=== PATIENT | male | born 1975 | race Native Hawaiian/Other Pacific Islander ===

== ENCOUNTER 2016-05-28 09:02 | Emergency (ER) | payer OTHER ==
[~2016-05-28] VITALS: Ht 180.3 cm; Wt 61.2 kg
[2016-05-28 09:15] VITALS: TEMP 99
[2016-05-28 10:48] LABS: POTASSIUM 3.4 mmol/L (3.6-5.2); SODIUM 138 mmol/L (136-145)
[2016-05-28 10:53] LABS: PLATELET COUNT 318 K/uL (142-355)
[2016-05-28 11:58] VITALS: BP 112/52
== END 2016-05-28 12:08 | disposition home or self-care (01) ==
LOC: ED 09:02
PROVIDERS: Specialist
DX: F10.239 Alcohol dependence with withdrawal, unspecified (principal); E51.2 Wernicke's encephalopathy; F41.8 Other specified anxiety disorders
CPT/HCPCS: 80053; 81000; 83605; 83735; 84100; 85027; 96365; 96375; 99284; J2060; J3411; J3475; J3490

== ENCOUNTER 2016-08-19 16:50 | Emergency (ER) | payer OTHER ==
[~2016-08-19] VITALS: Ht 177.8 cm; Wt 59.0 kg
[2016-08-19 17:00] VITALS: TEMP 98.6
[2016-08-19 18:05] VITALS: BP 152/89
== END 2016-08-19 18:05 | disposition home or self-care (01) ==
LOC: ED 16:50
DX: S29.011A Strain of muscle and tendon of front wall of thorax, initial encounter (principal); X58.XXXA Exposure to other specified factors, initial encounter; Y93.89 Activity, other specified; Y92.89 Other specified places as the place of occurrence of the external cause
CPT/HCPCS: 96372; 99283; J2270; J2360; J2405

== ENCOUNTER 2016-09-05 14:19 | Emergency (ER) | payer OTHER | END 2016-09-05 14:40 | disposition home or self-care (01) | LOC: ED 14:19 | DX: R07.81 Pleurodynia (principal) | CPT/HCPCS: 99281 ==

== ENCOUNTER 2016-09-12 16:54 | Emergency (ER) | payer OTHER ==
[~2016-09-12] VITALS: Ht 177.8 cm; Wt 59.0 kg
[2016-09-12 19:45] VITALS: BP 122/78; TEMP 98.2
== END 2016-09-12 19:30 | disposition home or self-care (01) ==
LOC: ED 16:54
DX: R07.89 Other chest pain (principal); S29.011A Strain of muscle and tendon of front wall of thorax, initial encounter
CPT/HCPCS: 80307; 81000; 96372; 99283; G0479; J1885; J2360

== ENCOUNTER 2016-10-25 00:25 | Emergency (ER) | payer OTHER ==
[~2016-10-25] VITALS: Ht 177.8 cm; Wt 61.2 kg
[2016-10-25 01:09] LABS: PLATELET COUNT 278 K/uL (142-355)
[2016-10-25 01:20] LABS: POTASSIUM 3.4 mmol/L (3.6-5.2); SODIUM 140 mmol/L (136-145)
[2016-10-25 05:39] VITALS: BP 1110/68; TEMP 98.3
== END 2016-10-25 05:42 | disposition home or self-care (01) ==
LOC: ED 00:25
DX: T14.91 Suicide attempt (principal); X83.8XXA Intentional self-harm by other specified means, initial encounter
CPT/HCPCS: 36415; 80053; 80307; 80320; 80329; 81000; 85027; 99285; G0479

== ENCOUNTER 2018-03-11 18:09 | Inpatient (IN) | payer OTHER ==
[~2018-03-11] VITALS: Ht 177.8 cm; Wt 65.1 kg
[2018-03-11 18:40] VITALS: BP 120/70; TEMP 99.3
[2018-03-11 23:37] VITALS: BP 128/72; TEMP 98.2; Ht 177.8 cm; Wt 65.1 kg
[2018-03-12 04:00] VITALS: BP 100/64; TEMP 98.9
[2018-03-12 08:00] VITALS: BP 107/65; TEMP 98.2
[2018-03-12 09:20] LABS: PLATELET COUNT 265 K/uL (142-355)
[2018-03-12 09:53] LABS: POTASSIUM 3.8 mmol/L (3.6-5.2)
[2018-03-12 12:23] VITALS: BP 107/66; TEMP 98.1
[2018-03-12 16:17] VITALS: BP 106/67; TEMP 98.5
[2018-03-12 20:00] VITALS: BP 116/63; TEMP 98.5
[2018-03-13] VITALS: BP 112/69; TEMP 98.1
[2018-03-13 04:00] VITALS: BP 112/71; TEMP 98.6
[2018-03-13 06:46] LABS: PLATELET COUNT 265 K/uL (142-355)
[2018-03-13 08:04] VITALS: BP 111/68; TEMP 98.6
[2018-03-13 12:12] VITALS: BP 111/59; TEMP 98.6
[2018-03-13 16:27] VITALS: BP 114/73; TEMP 98.7
[2018-03-13 20:10] VITALS: BP 109/98; TEMP 98.8
[2018-03-14] VITALS: BP 114/74; TEMP 99.5
[2018-03-14 04:00] VITALS: BP 109/64; TEMP 99.1
[2018-03-14 08:18] VITALS: BP 116/77; TEMP 98.5
[2018-03-14 12:05] VITALS: BP 125/83; TEMP 99
[2018-03-14 16:08] VITALS: BP 105/71; TEMP 98.8
[2018-03-14 16:10] LABS: PLATELET COUNT 310 K/uL (142-355)
[2018-03-14 20:00] VITALS: BP 111/64; TEMP 98.5
[2018-03-15 00:10] VITALS: BP 114/76; TEMP 98.4
[2018-03-15 04:05] VITALS: BP 122/72; TEMP 98.1
[2018-03-15 05:34] LABS: PLATELET COUNT 288 K/uL (142-355)
[2018-03-15 05:49] LABS: POTASSIUM 3.8 mmol/L (3.6-5.2)
[2018-03-15 08:05] VITALS: BP 110/72; TEMP 97.9
[2018-03-15 12:03] VITALS: BP 113/73; TEMP 98
[2018-03-15 16:09] VITALS: BP 112/74; TEMP 98.4
[2018-03-15 20:23] VITALS: BP 115/70; TEMP 98.5
[2018-03-16] VITALS: BP 124/73; TEMP 98.7
[2018-03-16 04:00] VITALS: BP 112/70; TEMP 98
[2018-03-16 06:16] LABS: PLATELET COUNT 293 K/uL (142-355)
[2018-03-16 06:52] LABS: POTASSIUM 3.7 mmol/L (3.6-5.2)
[2018-03-16 08:00] VITALS: BP 104/68; TEMP 98
[2018-03-16 12:00] VITALS: BP 123/80; TEMP 98.1
[2018-03-16 16:00] VITALS: BP 112/76; TEMP 98.7
[2018-03-16 20:00] VITALS: BP 108/67; TEMP 98.7
[2018-03-17] VITALS: BP 115/64; TEMP 99
[2018-03-17 04:00] VITALS: BP 112/67; TEMP 98.8
[2018-03-17 06:18] LABS: PLATELET COUNT 316 K/uL (142-355)
[2018-03-17 06:41] LABS: POTASSIUM 3.5 mmol/L (3.6-5.2)
[2018-03-17 08:00] VITALS: BP 111/74; TEMP 98.7
[2018-03-17 12:00] VITALS: BP 120/78; TEMP 97.8
[2018-03-17] MEDS ORDERED: LEVO250T2 PO (14:20)
== END 2018-03-17 16:20 | disposition home or self-care (01) | DRG 603 ==
LOC: ED 18:09 → MED/SURG 19:55
PROVIDERS: ADMIT Emergency Medicine
PROC: 05HM33Z Insertion of Infusion Device into Right Internal Jugular Vein, Percutaneous Approach (ICD-10-PCS; principal; 2018-03-14)
PROC: B543ZZA Ultrasonography of Right Jugular Veins, Guidance (ICD-10-PCS; 2018-03-14)
PROC: 0H9NXZZ Drainage of Left Foot Skin, External Approach (ICD-10-PCS; 2018-03-14)
DX: L02.612 Cutaneous abscess of left foot (principal); L03.116 Cellulitis of left lower limb; F17.200 Nicotine dependence, unspecified, uncomplicated; K59.09 Other constipation; I87.8 Other specified disorders of veins; B95.62 Methicillin resistant Staphylococcus aureus infection as the cause of diseases classified elsewhere
CPT/HCPCS: 80053; 80202; 83605; 85027; 85651; 86140; 87040; 87070; 87077; 87185; 87186; 87205; 90715; 96372; 99283; C1768; J0696; J1650; J1885; J2270; J3370; J3490

== ENCOUNTER 2020-04-11 03:15 | Inpatient (IN) | payer OTHER ==
[2020-04-11] VITALS (14 sets, daily range): BP systolic 139–156; BP diastolic 88–104; TEMP 97.9–98.7; Ht 177.8 cm; Wt 70.3 kg
[~2020-04-11] VITALS: Ht 177.8 cm; Wt 70.3 kg
[~2020-04-11 03:15] MED LIST: LEVO250T2 PO
[2020-04-11 03:55] LABS: PLATELET COUNT 285 K/uL (142-355)
[2020-04-11 04:04] LABS: POTASSIUM 3.3 mmol/L (3.6-5.2)
[2020-04-12 04:00] VITALS: BP 122/86; TEMP 100.1
[2020-04-12 06:14] LABS: PLATELET COUNT 190 K/uL (142-355)
[2020-04-12 06:25] LABS: POTASSIUM 3.5 mmol/L (3.6-5.2)
[2020-04-12 08:00] VITALS: BP 107/74; TEMP 100.2
[2020-04-12 12:15] VITALS: BP 120/84; TEMP 99.3
[2020-04-12 16:00] VITALS: BP 118/81; TEMP 100.1
[2020-04-12 20:00] VITALS: BP 115/72; TEMP 100
[2020-04-12 23:47] VITALS: BP 122/74; TEMP 99.1
[2020-04-13 04:00] VITALS: BP 120/62; TEMP 100.5
[2020-04-13 07:59] LABS: POTASSIUM 3.6 mmol/L (3.6-5.2)
[2020-04-13 08:00] VITALS: BP 124/74; TEMP 100.3
[2020-04-13 12:00] VITALS: BP 133/77; TEMP 98.4
[2020-04-13 16:00] VITALS: BP 116/71; TEMP 98.8
== END 2020-04-13 18:03 | disposition home or self-care (01) | DRG 439 ==
LOC: ED 03:15 → MED/SURG 06:32 → UNDODEPER 04-13 07:27 → MED/SURG 04-13 18:03
PROVIDERS: Emergency Medicine Emergency Medical Services; ADMIT Internal Medicine; ATTEND Internal Medicine
DX: K86.0 Alcohol-induced chronic pancreatitis (principal); E51.2 Wernicke's encephalopathy; E83.42 Hypomagnesemia; E87.6 Hypokalemia; F10.10 Alcohol abuse, uncomplicated; K70.30 Alcoholic cirrhosis of liver without ascites
CPT/HCPCS: 36415; 80053; 80307; 81000; 82150; 83690; 83735; 85027; 85610; 87040; 87077; 87185; 87205; 96360; 96361; 96365; 96366; 96375; 96376; 99284; J1170; J1200; J2060; J2405; J3475; J3480; J3490; Q9963

== ENCOUNTER 2020-06-15 15:54 | Inpatient (IN) | payer OTHER ==
[~2020-06-15] VITALS: Ht 177.8 cm; Wt 68.5 kg
[2020-06-15 16:03] VITALS: BP 121/95; TEMP 98.6
[2020-06-15] MEDS ORDERED: BUPR8SUB2 PO (16:09)
[2020-06-15 17:38] LABS: PLATELET COUNT 271 K/uL (142-355)
[2020-06-15 17:49] LABS: POTASSIUM 4.8 mmol/L (3.6-5.2)
[2020-06-16] VITALS (7 sets, daily range): BP systolic 125–146; BP diastolic 85–98; TEMP 97.9–98.7; Ht 177.8 cm; Wt 68.5 kg
[2020-06-16 06:39] LABS: PLATELET COUNT 200 K/uL (142-355)
[2020-06-16 06:49] LABS: POTASSIUM 3.7 mmol/L (3.6-5.2)
[2020-06-17 04:25] VITALS: BP 122/97; TEMP 98.7
[2020-06-17 07:54] VITALS: BP 125/89; TEMP 97.2
[2020-06-17 08:00] VITALS: BP 125/89; TEMP 97.2
[2020-06-17 11:21] VITALS: BP 120/83; TEMP 98.6
[2020-06-17 15:38] VITALS: BP 105/70; TEMP 97.8
== END 2020-06-17 18:25 | disposition home or self-care (01) | DRG 440 ==
LOC: ED 15:54 → MED/SURG 19:00
PROVIDERS: ADMIT Hospitalist; ATTEND Family Medicine
DX: K85.80 Other acute pancreatitis without necrosis or infection (principal); F10.10 Alcohol abuse, uncomplicated; Z72.0 Tobacco use
CPT/HCPCS: 36415; 80053; 80061; 80320; 82150; 83690; 83735; 84100; 85027; 87635; 94760; 96360; 96375; 99284; J1170; J1650; J2175; J2270; J2405; J3475; J3490; Q9963; U0003

== ENCOUNTER 2020-09-24 11:08 | Inpatient (IN) | payer OTHER ==
[~2020-09-24] VITALS: Ht 177.8 cm; Wt 66.5 kg
[~2020-09-24 11:08] MED LIST changes: +BUPR8SUB2 PO
[2020-09-24 11:16] VITALS: BP 116/80; TEMP 97
[2020-09-24 13:03] VITALS: BP 118/76
[2020-09-24 14:19] LABS: PLATELET COUNT 160 K/uL (142-355)
[2020-09-24 14:58] VITALS: BP 112/74
[2020-09-24 16:45] VITALS: BP 116/78
--- NOTE | 2020-09-24 17:50 | NUR ---
PATIENT ADMITTED FROM THE ER VIA WHEELCHAIR. PATIENT ORIENTED TO ROOM 1110. ADMISSION ASSESSMENT COMPLETED. PATIENT IN SEVERE PAIN. PATIENT GIVEN DILAUDID AND ZOFRAN AT THIS TIME. IV FLUIDS ONGOING MULTIVITAMIN BANANA BAG INFUSING AT THIS TIME.22G EJ PRESENT TO THE LEFT SIDE OF THE NECK. BED LOCKED IN LOW POSITION, SIDERAILS UP X2, CALL MACIAS WITHIN REACH.
[2020-09-24 18:24] VITALS: BP 131/86; TEMP 97.7; Ht 177.8 cm; Wt 66.5 kg
[2020-09-24 20:00] VITALS: BP 141/107; TEMP 98
--- NOTE | 2020-09-24 20:20 | NUR ---
CALLED DR. SUAZO AND NEW ORDER RECEIVED. PT TO RECEIVE NICODERM PATCH 21 MG. PT IS A SMOKER. PT IN WITH PANCREATITIS. PT IS NPO. PT ADMITS TO DRINKING ALCOHOL THIS AM PT ADMITS TO IV DRUG USE. BP IS 141/107. PT IS RESTLESS. SEIZURE PRECAUTIONS ARE IN USE.
--- NOTE | 2020-09-24 20:40 | NUR ---
PT WITH COMPLAINTS OF ABDOMINAL PAIN. MEDICATED WITH DILAUDID 1 MG IVSP.
--- NOTE | 2020-09-24 21:54 | NUR ---
PT WAS MEDICATED WITH DILAUDID 1 MG IVSP.
--- NOTE | 2020-09-24 23:02 | NUR ---
PT WITH COMPLAINTS OF ABDOMINAL PAIN. DILAUDID 1 MG IVSP WAS GIVEN.
[2020-09-25 00:25] VITALS: BP 135/95; TEMP 98.7
--- NOTE | 2020-09-25 02:02 | NUR ---
PT WAS GIVEN DIAZEPAM [address] ORDER OF [address] SUAZO. PT IS RESTLESS AND ADMITS TO DRINKING ALCOHOL LAST 3 DAYS AND NOT EATING. PT HAS BEEN ANXIOUS. PT HAS BEEN CONFRONTATIONAL WITH STAFF. STATES THAT WE "WANT HIM TO HURT". MEDICATION WAS GIVEN IV. PT IS BEING MONITORED.
--- NOTE | 2020-09-25 02:28 | NUR ---
HEART RATE IS 110 AT THIS TIME.
--- NOTE | 2020-09-25 03:00 | NUR ---
HEART RATE IS 98.
[2020-09-25 03:43] VITALS: BP 137/84; TEMP 98
--- NOTE | 2020-09-25 04:37 | NUR ---
BANANA BAG WAS GIVEN ORDERED IN THE ER PRIOR TO ADMISSION. DR. LAKEISHA BOND -KNOWLEGED THIS. PT IS IMPROVING WITH DECREASE IN SIGNS AND SYMPTOMS OF DT'S AT PRESENT. PT IS IN WITH PANCREATITS. PT ABLE TO REST NOW. HR IS 101. BP IS STILL ELEVATED. MONITORING. NO URINE OUTPUT SINCE 2000PM.
--- NOTE | 2020-09-25 04:48 | NUR ---
0300AM PT RESPONDING TO VALIUM IV GIVEN EARLER. ASSESSING CIWA-Ar score. PT IS AT 20 NOW. MONITORING EVERY HOUR.
--- NOTE | 2020-09-25 04:55 | NUR ---
PT WAS GIVEN ATIVAN 2 MG IV. SEE AWP.
[2020-09-25 05:34] LABS: PLATELET COUNT 139 K/uL (142-355)
[2020-09-25 06:00] LABS: POTASSIUM 3.6 mmol/L (3.6-5.2)
--- NOTE | 2020-09-25 06:43 | NUR ---
PT HAS IMPROVED WITH USE OF ALCOHOL WITHDRAWAL PROTOCAL. PRESENTLY RESTING. NO S/SX OF SEIZURE ACTIVITY. PT LESS RESTLESS, TREMORS LESS, AND ANXIETY DECREASED.
[2020-09-25 08:00] VITALS: BP 138/97; TEMP 98.3
--- NOTE | 2020-09-25 08:43 | NUR ---
REPORTED TO DR. NIEVES THAT MULTIVITAMIN BAG IS SCHEDULED Q6, DR. NIEVES ORDERS TO CHANGE TO Q24H AND TO DC THIAMINE WITH MAGNESIUM BAG, HE ALSO ORDER TO DRAW A MAGNESIUM LEVEL AT THIS TIME
[2020-09-25 12:00] VITALS: BP 115/83; TEMP 97.9
--- NOTE | 2020-09-25 12:28 | NUR ---
PATIENT PROVIDED INFORMATION AND PHONE NUMBER FOR [facility]. THE PATIENT DOES NOT HAVE A PCP.
--- NOTE | 2020-09-25 14:30 | NUR ---
PT AWAKE AND SITTING UP IN BED WITH FAMILY AT BEDSIDE. IVF INFUSING WITHOUT DIFFICULTY. PT C/O OF PAIN 10/12 AND REQUESTS PAIN MEDICATION. PT GIVEN HYDROMORPHONE 1MG IV SLOW PUSH PER MD ORDERS. WILL CON'T TO MONITOR PT.
[2020-09-25 16:00] VITALS: BP 125/95; TEMP 98.7
[2020-09-25 20:00] VITALS: BP 123/90; TEMP 98.1
[2020-09-26 00:15] VITALS: BP 131/97; TEMP 98.5
[2020-09-26 04:00] VITALS: BP 120/82; TEMP 98.2
[2020-09-26 05:48] LABS: PLATELET COUNT 118 K/uL (142-355)
[2020-09-26 06:03] LABS: POTASSIUM 3.1 mmol/L (3.6-5.2)
[2020-09-26 08:00] VITALS: BP 128/89; TEMP 98.5
[2020-09-26 12:59] VITALS: BP 116/84; TEMP 98.1
--- NOTE | 2020-09-26 14:30 | NUR ---
PT REQUEST TO TRY TO EAT JELLO AT THIS TIME, DR. NIEVES NOTIFIED AND STATES PT CAN BE CHANGED TO CLEAR LIQUID DIET AND MONITOR FOR PAIN, NO FURTHER ORDERS AT THIS TIME
--- NOTE | 2020-09-26 15:55 | NUR ---
PT STATES PAIN INCREASED TO MIDEPIGASTRIC REGION AFTER EATING JELLO, DR. NIEVES NOTIFIED AND ORDERS FOR PT TO BE NPO, NO FURTHER ORDERS GIVEN
[2020-09-26 16:00] VITALS: BP 115/82; TEMP 98.6
[2020-09-26 20:00] VITALS: BP 106/69; TEMP 98.3
--- NOTE | 2020-09-26 20:15 | NUR ---
ENTERED PATIENT'S ROOM AT THIS TIME. AT BEDSIDE WITH PATIENT. NAD NOTED. PATIENT WATCHING TV. RESPIRATIONS EVEN AND UNLABORED. 22G TO RIGHT UA PATENT AND INTACT. BANANA BAG CURRENTLY INFUSING. PATIENT REPORTS MILD PAIN TO LUQ AREA. BED LOCKED AND IN LOWEST POSITION. CALL LIGHT WITHIN REACH.
--- NOTE | 2020-09-26 20:25 | NUR ---
ENTERED PATIENT'S ROOM. PATIENT IS RESTING QUIETLY IN BED WITH EYES CLOSED. CPAP INTACT. AT BEDSIDE IN CHAIR. PATIENT ALERT AND AWAKE TO TOUCH. NO CONCERNS OR COMPLAINTS VOICED. BED LOCKED AND IN LOWEST POSITION. CALL LIGHT WITHIN REACH.
--- NOTE | 2020-09-26 21:15 | NUR ---
DILAUDID 1MG PULLED AND GIVEN BY NICOLE LEAL RN AT THIS TIME.
[2020-09-27] VITALS: BP 126/84; TEMP 98.7
--- NOTE | 2020-09-27 | NUR ---
WHILE HANGING ZOSYN IVPB, PATIENT C/O PAIN TO LUQ. I EXPLAINED THAT THE PAIN MEDICATION WAS PREVIOUSLY GIVEN AROUND 2100 AND COULD BE GIVEN AROUND 010. PATIENT BEGINS COMPLAINING AND STATES THAT THE OTHER NURSE GAVE THE MEDICINE @ 2014. DILAUDID WAS PULLED FROM [place] AT 2110. ENTERED PATIENT'S ROOM AT 0050. DILAUDID 1MG GIVEN SLOW IVP. REPORTS RELIEF IN PAIN. PATIENT NOW STATES HE UNDERSTANDS AND WAS NOT TRYING TO BE RUDE PREVIOUSLY. NO OTHER CONCERNS OR COMPLAINTS VOICED. CALL LIGHT WITHIN REACH.
[2020-09-27 04:00] VITALS: BP 116/78; TEMP 99.5
[2020-09-27 05:00] LABS: PLATELET COUNT 126 K/uL (142-355)
--- NOTE | 2020-09-27 05:50 | NUR ---
PATIENT CALLED REQUESTING PAIN MEDICATION. DILAUDID 1MG GIVEN SLOW IVP. PATIENT REPORTS RELIEF IN PAIN. BRIDGET SAMS IVPB. 22G TO RIGHT UA PATENT AND INTACT. PATIENT REPORTS SLIGHT BURNING THAT WENT AWAY. NO ERYTHEMA OR SWELLING NOTED.
[2020-09-27 08:00] VITALS: BP 121/91; TEMP 98.2
[2020-09-27 08:33] LABS: POTASSIUM 4.7 mmol/L (3.6-5.2)
--- NOTE | 2020-09-27 09:13 | NUR ---
SPOKE TO MD REGARDING PT LABS NEW ORDERS. NEW ORDERS GIVEN AND CARRIED OUT.
--- NOTE | 2020-09-27 09:34 | NUR ---
PER PT AND HIS GF, HE ATE CHICKEN NUGGETS YESTERDAY AND TOLERATED THEM WELL. PT ALSO STATES HE TRIED TO EAT TACOS BUT STARTED HURTING AFTER EATING THE TACOS. PT STATES HE WASN'T HONEST WITH STAFF BC HE THOUGHT IT WOULD DELAY HIS DC HOME.
--- NOTE | 2020-09-27 10:11 | NUR ---
DR. CHAPA NOTIFIED ABOUT PATIENT TOLERATING PO FOODS. PT ATE ZAXBY[employer]SA SALAD W/O BEING IN PAIN.
--- NOTE | 2020-09-27 11:34 | NUR ---
DR. CHAPA IN TO SEE PT.
[2020-09-27 12:00] VITALS: BP 139/102; TEMP 98.3
--- NOTE | 2020-09-27 12:06 | NUR ---
NOTIFIED OF BP- NO NEW ORDERS AT THIS TIME
--- NOTE | 2020-09-27 12:27 | NUR ---
DC INSTRUCTIONS EXPLAINED TO PT AND TO S/O WHO VERBALIZED UNDERSTANDING. F/U APPT MADE.
--- NOTE | 2020-09-27 12:32 | NUR ---
PT WHEELED TO EXIT FOR TRANSPORT HOME WITH S/O. PT LEFT FLOOR IN NAD WITH ALL BELONGINGS.
== END 2020-09-27 12:15 | disposition home or self-care (01) | DRG 438 ==
LOC: ED 11:08 → MED/SURG 16:40
PROVIDERS: Hospitalist; ADMIT Internal Medicine Endocrinology, Diabetes & Metabolism; ATTEND Internal Medicine Endocrinology, Diabetes & Metabolism
DX: K85.20 Alcohol induced acute pancreatitis without necrosis or infection (principal); K75.0 Abscess of liver; K86.3 Pseudocyst of pancreas; R73.9 Hyperglycemia, unspecified; Z72.0 Tobacco use; E87.6 Hypokalemia; K70.30 Alcoholic cirrhosis of liver without ascites; F10.20 Alcohol dependence, uncomplicated; K86.0 Alcohol-induced chronic pancreatitis
CPT/HCPCS: 36415; 80053; 80307; 80320; 81000; 82150; 83690; 83735; 85027; 87635; 96365; 96366; 96375; 96376; 99284; J1170; J1650; J2060; J2175; J2405; J2543; J3360; J3411; J3475; J3490; Q9963; U0003

== ENCOUNTER 2021-06-12 08:23 | Emergency (ER) | payer OTHER ==
[~2021-06-12] VITALS: Ht 177.8 cm; Wt 66.2 kg
[2021-06-12 08:33] VITALS: BP 128/88; TEMP 98.2
== END 2021-06-12 08:59 | disposition home or self-care (01) ==
LOC: ED 08:23
DX: S39.012A Strain of muscle, fascia and tendon of lower back, initial encounter (principal); X50.1XXA Overexertion from prolonged static or awkward postures, initial encounter; Y92.098 Other place in other non-institutional residence as the place of occurrence of the external cause
CPT/HCPCS: 99282; J1885